=== PATIENT | female | born 1995 | race African-American/Black ===

== ENCOUNTER 2024-09-19 11:58 | Inpatient (IN) | payer OTHER ==
[2024-09-19 12:14] VITALS: BMI 22.8
[2024-09-19] MEDS ORDERED: NALOXONE (NARCAN) HCL 4 MG/0.1 ML SPRAY NS PRN (12:31)
[2024-09-19] MEDS ORDERED: NICOTINE POLACRILEX 2 MG LOZENGE BC PRN (12:31)
[2024-09-19] MEDS ORDERED: ACETAMINOPHEN 325 MG TABLET (FP) PO PRN (12:31)
[2024-09-19] MEDS ORDERED: BENZOCAINE/MENTHOL (CHLORASEPTIC ) LOZENGE MM PRN (12:31)
[2024-09-19] MEDS ORDERED: BISMUTH SUBSALICYLATE 262 MG/15 ML BTL PO PRN (12:31)
[2024-09-19] MEDS ORDERED: LOPERAMIDE HCL 2 MG CAPSULE PO PRN (12:31)
[2024-09-19] MEDS ORDERED: BENZONATATE 200 MG CAPSULE PO PRN (12:31)
[2024-09-19] MEDS ORDERED: POLYETHYLENE GLYCOL (HEALTHYLAX) 3350 17 GM PACKET PO PRN (12:31)
[2024-09-19] MEDS ORDERED: ONDANSETRON *ODT* 4 MG TABLET SL PRN (12:31)
[2024-09-19] MEDS ORDERED: DICYCLOMINE HCL 10 MG CAPSULE PO PRN (12:31)
[2024-09-19] MEDS ORDERED: guaiFENesin 600 MG TABLET.ER (FP) PO PRN (12:31)
[2024-09-19] MEDS: propRANOLol HCL 10 MG TABLET PO ONE (13:37)
[2024-09-19] MEDS: THIAMINE 100 MG TABLET PO SCH (21:56)
[2024-09-19] MEDS: MELATONIN 5 MG TABLETS PO SCH (21:56)
[2024-09-19] MEDS: METHOCARBAMOL 500 MG TABLET PO PRN (21:57)
[2024-09-20] MEDS ORDERED: chlordiazePOXIDE HCL 25 MG CAPSULE PO PRN (07:19)
[2024-09-20] MEDS: chlordiazePOXIDE HCL 25 MG CAPSULE PO ONE (07:29)
[2024-09-20 10:16] LABS: POTASSIUM 3.8 mmol/L (3.5-5.1)
[2024-09-20 10:18] LABS: HEMOGLOBIN 16.4 GM/dL (10.7-15.3); MCH 30.4 pg (25.7-33.7); MCHC 32.8 g/dl (32.0-36.0); MEAN CELL VOLUME 92.7 fl (80-96); MEAN PLT VOLUME 8.4 fl (7.5-11.1); PLATELET COUNT 519 10^3/uL (134-434); RBC 5.39 M/mm3 (3.60-5.2); RDW 14.9 % (11.6-15.6); WHITE BLOOD COUNT 11.3 K/mm3 (4.0-10.0)
[2024-09-20 10:24] LABS: CALCIUM 10.6 mg/dL (8.5-10.1)
[2024-09-20 10:25] LABS: ALBUMIN 4.7 g/dl (3.4-5.0)
[2024-09-20 10:26] LABS: BILIRUBIN,TOTAL 0.9 mg/dL (0.2-1); CREATININE 0.9 mg/dL (0.55-1.3); TOT PROT 9.2 g/dl (6.4-8.2)
[2024-09-20] MEDS: chlordiazePOXIDE HCL 25 MG CAPSULE PO SCH (10:28)
[2024-09-20] MEDS: PRENATAL VITAMINS W/ FOLIC ACID TABLET (FP) PO SCH (10:28)
[2024-09-20] MEDS: IBUPROFEN 400 MG TABLET (FP) PO PRN (12:41)
[2024-09-20] MEDS: MAGNESIUM HYDROX 2400MG/30ML ORAL SUSPENSION 30 ML CUP PO PRN (12:41)
[2024-09-20] MEDS: FAMOTIDINE 20 MG TABLET PO SCH (15:40)
[2024-09-21] MEDS: hydrOXYzine PAMOATE 25 MG CAPSULE (FP) PO PRN (17:59)
[2024-09-22] MEDS: chlordiazePOXIDE HCL 25 MG CAPSULE PO SCH (06:00)
[2024-09-22] MEDS: MAG HYDROX/AL HYDROX/SIMETH 30 ML UNIT-DOSE CUP PO PRN (08:35)
[2024-09-22] MEDS: NICOTINE POLACRILEX 2 MG GUM BUC PRN (16:33)
[2024-09-23] MEDS ORDERED: chlordiazePOXIDE HCL 10 MG CAPSULE PO PRN
[2024-09-23] MEDS: chlordiazePOXIDE HCL 10 MG CAPSULE PO SCH (05:30)
[2024-09-24] MEDS: chlordiazePOXIDE HCL 10 MG CAPSULE PO SCH (05:56)
[2024-09-24 11:28] LABS: HEMATOCRIT 32.5 % (32.4-45.2); HEMOGLOBIN 10.9 GM/dL (10.7-15.3); MCH 30.4 pg (25.7-33.7); MCHC 33.5 g/dl (32.0-36.0); MEAN CELL VOLUME 90.8 fl (80-96); MEAN PLT VOLUME 7.8 fl (7.5-11.1); PLATELET COUNT 336 10^3/uL (134-434); RBC 3.58 M/mm3 (3.60-5.2); RDW 14.4 % (11.6-15.6); WHITE BLOOD COUNT 5.7 K/mm3 (4.0-10.0)
[2024-09-24 12:31] LABS: POTASSIUM 3.4 mmol/L (3.5-5.1)
[2024-09-24 12:54] LABS: BLOOD UREA NITROGEN 16.4 mg/dL (7-18)
[2024-09-24 12:57] LABS: BILIRUBIN,TOTAL 0.3 mg/dL (0.2-1); CREATININE 0.7 mg/dL (0.55-1.3)
[2024-09-24 13:03] LABS: ALBUMIN 3.3 g/dl (3.4-5.0); TOT PROT 6.1 g/dl (6.4-8.2)
[2024-09-24] MEDS: ACAMPROSATE CALCIUM 333 MG TABLET.DR PO SCH (13:22)
[2024-09-25] MEDS: chlordiazePOXIDE HCL 10 MG CAPSULE PO ONE (05:45)
[2024-09-25] MEDS: IBUPROFEN 600 MG TABLET (FP) PO PRN (09:06)
[2024-09-25 09:14] VITALS: BP 114/64; PULSE 103; RESP 20; TEMP 98
== END 2024-09-25 09:38 | disposition home or self-care (01) | DRG 775 ==
LOC: YASAS 11:58 → Y6N 13:13 → EDBD 13:13
PROVIDERS: ADMIT Allergy & Immunology; ATTEND Allergy & Immunology
PROC: HZ2ZZZZ Detoxification Services for Substance Abuse Treatment (ICD-10-PCS; principal; 2024-09-19)
DX: F10.230 Alcohol dependence with withdrawal, uncomplicated (principal); F12.20 Cannabis dependence, uncomplicated; F17.213 Nicotine dependence, cigarettes, with withdrawal; F19.282 Other psychoactive substance dependence with psychoactive substance-induced sleep disorder; F19.24 Other psychoactive substance dependence with psychoactive substance-induced mood disorder; F31.81 Bipolar II disorder; G40.909 Epilepsy, unspecified, not intractable, without status epilepticus; K21.9 Gastro-esophageal reflux disease without esophagitis; Z62.810 Personal history of physical and sexual abuse in childhood; Z91.410 Personal history of adult physical and sexual abuse; Z63.0 Problems in relationship with spouse or partner; Z63.8 Other specified problems related to primary support group
CPT/HCPCS: 36415; 80053; 80305; 80307; 81025; 83970; 85027; 86780; 93005; 93010